=== PATIENT | female | born 1980 | race Caucasian/White ===

== ENCOUNTER → 2023-12-28 09:18 | Outpatient (CLI) | payer BC, SELFPAY ==
[2023-12-28 10:48] LABS: Cholesterol 166 mg/dL (140-199); HDL Cholesterol 52 mg/dL (40-60); LDL Cholesterol Calculated 101 mg/dL (<100); Triglycerides 66 mg/dL (35-150)
[2023-12-28 11:22] LABS: TSH w/ Reflex to FT4 1.68 uIU/mL (0.47-4.68)
== END ==
PROVIDERS: PCP Family Medicine; Referring Provider Family Medicine; Visit Provider Family Medicine
DX: Z13.220 Encounter for screening for lipoid disorders (principal); E66.813 Obesity, class 3; Z68.43 Body mass index [BMI] 50.0-59.9, adult
CPT/HCPCS: 36415; 80061; 84443